=== PATIENT | female | born 1945 | race Caucasian/White ===

== ENCOUNTER 2016-06-02 09:42 | Outpatient (CLI) | payer MEDICARE ==
[2016-06-02 10:25] LABS: #Basophils 0.2 thou/uL (0.0-0.2); #Eosinphils 0.5 thou/uL (0.0-0.7); #Lymphocytes 2.5 thou/uL (1.20-3.40); #Monocytes 0.6 thou/uL (0.11-0.59); #Neutrophils 4.5 thou/uL (1.40-6.50); %Basophils 1.9 % (0.0-1.0); %Monocytes 7.4 % (0.0-10.0); %Neutrophils 54.8 % (42.0-75.0); Hemoglobin 16.1 g/dL (12.0-16.0); Mean Corpuscular HGB CONC 33.7 g/dL (32.0-36.0); Mean Corpuscular Hemoglobin 32.9 pg (27.0-31.0); Mean Corpuscular Volume 97.6 fl (81.0-99.0); Mean Platelet Volume 9.3 fL (7.4-10.4); Platelet Count 240 thou/uL (130-400); RBC Distribution Width 12.1 % (11.5-14.5); Red Blood Cell (RBC) Count 4.91 mill/uL (4.20-5.40); White Blood Cell (WBC) Count 8.2 thou/uL (4.8-10.8)
[2016-06-02 10:32] LABS: Hemoglobin A1c 5.7 % (4.0-6.0)
[2016-06-02 11:04] LABS: ALT (SGPT) 13 U/L (0-55); AST (SGOT) 13 U/L (5-34); Alkaline Phosphatase 121 U/L (40-150); Anion Gap 16 mmol/L (10-20); BUN (Urea Nitrogen) 11 mg/dL (9.8-20.1); Bilirubin, Direct 0.2 mg/dL (0.1-0.3); Bilirubin, Total 0.4 mg/dL (0.2-1.2); Calc. Creatinine Clearance 0 mL/min (70-130); Calcium 9.3 mg/dL (7.8-10.44); Carbon Dioxide 24 mmol/L (23-31); Cardiac Risk 4.8 (Less than 4.5); Chloride 105 mmol/L (98-107); Cholesterol 207 mg/dL (< 200 Desired); Estimated GFR-MDRD 82; Glucose 109 mg/dL (80-115); HDL Cholesterol 43 mg/dL (>60 Neg Risk); LDL Cholesterol, Calculated 130 mg/dL; Potassium 4.1 mmol/L (3.5-5.1); Protein, Total 7.1 g/dL (5.8-8.1); Sodium 141 mmol/L (136-145); Triglycerides 168 mg/dL (Less than 150)
[2016-06-02 17:56] LABS: Creatinine, Urine 55.59 mg/dL (47-110); Microalbumin Urine 4.4 mg/dL (0.5-50.0); Microalbumin/Creat Ratio 79.2 mg/g (Less than 30)
== END 2016-06-02 09:43 | disposition home or self-care (01) ==
LOC: MADLABBHPM 09:42
PROVIDERS: ATTEND Family Medicine
DX: E78.5 Hyperlipidemia, unspecified (principal); E66.9 Obesity, unspecified; E11.9 Type 2 diabetes mellitus without complications; I10 Essential (primary) hypertension
CPT/HCPCS: 36415; 80048; 80061; 80076; 82043; 83036; 84443; 85025

== ENCOUNTER 2017-03-28 11:35 | Emergency (ER) | payer MEDICARE ==
[2017-03-28 13:06] LABS: Bilirubin Negative (Negative); Blood, Urine Small (Negative); Glucose, Urine (Dipstick) Negative (Negative); Leukocyte Negative (Negative); Nitrite Negative (Negative); Protein, Urine (Dipstick) 30 mg/dL (Neg-Trace); Specific Gravity, Urine 1.025 (1.005-1.030); Urobilinogen 0.2 mg/dL (0.2-1.0)
[2017-03-28 13:07] LABS: Clarity Hazy (Clear)
[2017-03-28 13:08] LABS: Bacteria/HPF 1+ HPF (None Seen); Crystals/HPF 2+ CA OXALATE HPF (Negative); WBC/HPF 0-3 HPF (0-3)
--- NOTE | 2017-03-28 14:47 | RAD ---
AP PELVIS: HISTORY: Pelvic pain. Hip pain. FINDINGS: There are degenerative changes in the lower lumbar spine and in both hip joints. No definite fractur e or dislocation is seen. POS: [facility]
--- NOTE | 2017-03-28 14:50 | RAD ---
RADIOGRAPH LUMBAR SPINE 2 VIEWS: DATE: 03/28/2017 HISTORY: A 72-year-old female with chronic low back pain. COMPARISON: 08/24/2014 FINDINGS: There are five lumbar type vertebrae. Vertebral body heights are maintained. There is no scoliosis. There are endplate marginal osteophytes at multiple levels, especially in the lower thoracic spine and upper lumbar spine. There is moderate disk space narrowing at L5-S1. No severe disk space narro wing at any level. Vertebral body heights are maintained. There are high-grade degenerative facet c hanges at the lower levels. There is no major interval change overall. IMPRESSION: 1. Lumbar spondylosis with degenerative disk disease and facet osteoarthrosis at the lower levels. 2. No major interval change since 08/24/2014. MARVIN [] POS: [facility]PH[facility]
== END 2017-03-28 14:44 | disposition home or self-care (01) ==
LOC: MADERS 11:35
DX: M54.5 Low back pain (principal); R82.71 Bacteriuria; K64.9 Unspecified hemorrhoids; M41.9 Scoliosis, unspecified; I10 Essential (primary) hypertension; K21.9 Gastro-esophageal reflux disease without esophagitis; E78.00 Pure hypercholesterolemia, unspecified; F17.210 Nicotine dependence, cigarettes, uncomplicated; Z79.899 Other long term (current) drug therapy
CPT/HCPCS: 72100; 72170; 81003; 81015

== ENCOUNTER 2017-04-21 16:56 | Outpatient (CLI) | payer MEDICARE ==
--- NOTE | 2017-04-21 19:10 | RAD ---
TWO VIEWS CHEST 04/21/17 PROVIDED CLINICAL HISTORY: Cough. FINDINGS: Comparison is made with the study dated 09/06/11. The cardiac and mediastinal silhouette is unchanged in appearance. Nodular density at the left lung b ase is stable as compared with prior and probably reflects a granuloma. No focal consolidation, pleur al fluid or pneumothorax apparent. IMPRESSION: No evidence for an acute cardiopulmonary process. POS: [facility]
== END 2017-04-21 16:57 | disposition home or self-care (01) ==
LOC: MADRAD 16:56
PROVIDERS: ATTEND Family Medicine
DX: J45.909 Unspecified asthma, uncomplicated (principal)
CPT/HCPCS: 71046

== ENCOUNTER 2019-03-29 14:03 | Emergency (ER) | payer MEDICARE ==
[2019-03-29 14:31] LABS: Bilirubin Negative (Negative); Blood, Urine Small (Negative); Glucose, Urine (Dipstick) Negative (Negative); Leukocyte Trace (Negative); Nitrite Negative (Negative); Protein, Urine (Dipstick) 30 mg/dL (Neg-Trace); Urobilinogen 0.2 mg/dL (Less than 2)
[2019-03-29 14:37] LABS: Bacteria/HPF 1+ HPF (None Seen); Clarity Hazy (Clear)
[2019-03-29] MEDS ORDERED: Ibuprofen 800 MG TAB ONE (14:50)
== END 2019-03-29 15:09 | disposition home or self-care (01) ==
LOC: MADERS 14:03
DX: N39.0 Urinary tract infection, site not specified (principal); I10 Essential (primary) hypertension; K21.9 Gastro-esophageal reflux disease without esophagitis; E78.00 Pure hypercholesterolemia, unspecified; F17.210 Nicotine dependence, cigarettes, uncomplicated; Z79.899 Other long term (current) drug therapy
CPT/HCPCS: 81001; 87086; 99283

== ENCOUNTER 2019-06-26 18:29 | Emergency (ER) | payer MEDICARE, OTHER ==
--- NOTE | 2019-06-26 19:35 | RAD ---
XR Chest 1 View Portable History: Cough Comparison: Radiograph March 2017 Findings: Similar nodular density left lung base. Heart size upper limits of normal. Mild pulmonary v enous congestion. No pneumothorax. No effusion. No acute osseous abnormality. Impression: Cardiomegaly and mild pulmonary venous congestion. No evidence for pneumonia.
[2019-06-26 19:54] LABS: #Basophils 0.1 thou/uL (0.0-0.2); #Eosinphils 0.3 thou/uL (0.0-0.7); #Lymphocytes 2.3 thou/uL (1.20-3.40); #Monocytes 0.8 thou/uL (0.11-0.59); #Neutrophils 6.5 thou/uL (1.40-6.50); %Basophils 1.4 % (0.0-1.0); %Eosinophils 2.6 % (0.0-10.0); %Lymphocytes 22.8 % (21.0-51.0); %Monocytes 8.2 % (0.0-10.0); Hemoglobin 15.6 g/dL (12.0-16.0); Mean Corpuscular HGB CONC 32.5 g/dL (32.0-36.0); Mean Corpuscular Hemoglobin 32.3 pg (27.0-31.0); Mean Corpuscular Volume 99.3 fL (78.0-98.0); Mean Platelet Volume 10.4 fL (7.4-10.4); Platelet Count 228 thou/uL (130-400); RBC Distribution Width 12.3 % (11.5-14.5); Red Blood Cell (RBC) Count 4.84 mill/uL (4.20-5.40)
[2019-06-26 20:09] LABS: ALT (SGPT) 10 U/L (8-55); AST (SGOT) 16 U/L (5-34); Albumin 4.1 g/dL (3.4-4.8); Alkaline Phosphatase 143 U/L (40-110); Anion Gap 17 mmol/L (10-20); BUN (Urea Nitrogen) 8 mg/dL (9.8-20.1); Bilirubin, Total 0.2 mg/dL (0.2-1.2); Calc. Creatinine Clearance 0 mL/min (70-130); Calcium 9.4 mg/dL (7.8-10.44); Carbon Dioxide 21 mmol/L (23-31); Chloride 108 mmol/L (98-107); Estimated GFR-MDRD 76; Globulin 3.2 g/dL (2.4-3.5); Glucose 134 mg/dL (83-110); Potassium 3.8 mmol/L (3.5-5.1); Protein, Total 7.3 g/dL (6.0-8.3); Sodium 142 mmol/L (136-145)
== END 2019-06-26 21:38 | disposition home or self-care (01) ==
LOC: MADERS 18:29
DX: R05 Cough (principal); F17.210 Nicotine dependence, cigarettes, uncomplicated; I10 Essential (primary) hypertension; Z20.828 Contact with and (suspected) exposure to other viral communicable diseases; K21.9 Gastro-esophageal reflux disease without esophagitis; E78.00 Pure hypercholesterolemia, unspecified; F32.9 Major depressive disorder, single episode, unspecified; Z79.899 Other long term (current) drug therapy
CPT/HCPCS: 71045; 80053; 83605; 85025; 87804 ×2; 99283; 99406; U0001

== ENCOUNTER 2019-08-20 19:33 | Emergency (ER) | payer MEDICARE ==
[2019-08-20 20:00] LABS: Bilirubin Negative (Negative); Blood, Urine Moderate (Negative); Glucose, Urine (Dipstick) Negative (Negative); Leukocyte Moderate (Negative); Nitrite Negative (Negative); Protein, Urine (Dipstick) 100 mg/dL (Neg-Trace); Urobilinogen 0.2 mg/dL (Less than 2)
[2019-08-20 20:01] LABS: Clarity Cloudy (Clear)
[2019-08-20 20:14] LABS: Bacteria/HPF 2+ HPF (None Seen); Squamous Epithelial 0-3 HPF (0-3); WBC/HPF 21-50 HPF (0-3)
== END 2019-08-20 20:30 | disposition home or self-care (01) ==
LOC: MADERS 19:33
DX: N39.0 Urinary tract infection, site not specified (principal); E78.00 Pure hypercholesterolemia, unspecified; I10 Essential (primary) hypertension; K21.9 Gastro-esophageal reflux disease without esophagitis; F32.9 Major depressive disorder, single episode, unspecified; F17.210 Nicotine dependence, cigarettes, uncomplicated; Z79.899 Other long term (current) drug therapy
CPT/HCPCS: 81003; 81015; 99283

== ENCOUNTER 2019-08-29 17:24 | Outpatient (CLI) | payer MEDICARE ==
[2019-08-29 17:54] LABS: Bilirubin Negative (Negative); Blood, Urine Moderate (Negative); Glucose, Urine (Dipstick) Negative (Negative); Leukocyte Moderate (Negative); Nitrite Negative (Negative); Protein, Urine (Dipstick) 30 mg/dL (Neg-Trace); Urobilinogen 0.2 mg/dL (Less than 2)
[2019-08-29 18:19] LABS: Clarity Slightly Cloudy (Clear)
[2019-08-29 18:20] LABS: Bacteria/HPF 2+ HPF (None Seen); Squamous Epithelial 0-3 HPF (0-3); WBC/HPF Greater Than 50 HPF (0-3)
== END 2019-08-29 17:25 | disposition home or self-care (01) ==
LOC: MADLABBHPM 17:24
PROVIDERS: ATTEND Family Medicine
DX: R30.0 Dysuria (principal)
CPT/HCPCS: 81001; 87077; 87086; 87186

== ENCOUNTER 2020-03-16 13:30 | Emergency (ER) | payer MEDICARE ==
[2020-03-16 14:17] LABS: Bilirubin Negative (Negative); Blood, Urine Large (Negative); Clarity Cloudy (Clear); Glucose, Urine (Dipstick) Negative (Negative); Ketone, Urine Negative (Negative); Leukocyte Trace (Negative); Nitrite Negative (Negative); Protein, Urine (Dipstick) 100 mg/dL (Neg-Trace); Specific Gravity, Urine 1.015 (1.005-1.030); Urobilinogen 0.2 mg/dL (Less than 2)
[2020-03-16 14:21] LABS: RBC/HPF Greater than 50 HPF (0-3); Squamous Epithelial 0-3 HPF (0-3); WBC/HPF 0-3 HPF (0-3)
[2020-03-16 14:22] LABS: Bacteria/HPF Rare-Few HPF (None Seen)
[2020-03-17 02:10] LABS: SARS-CoV-2 MS2 Positive; SARS-CoV-2 N Gene Negative; SARS-CoV-2 S Gene Negative; SARS-CoV-2 by NAA Not Detected (NotDetected); SARS-CoV-2 orf1ab Negative
== END 2020-03-16 15:11 | disposition home or self-care (01) ==
LOC: MADERS 13:30
DX: N30.91 Cystitis, unspecified with hematuria (principal); F17.210 Nicotine dependence, cigarettes, uncomplicated; I10 Essential (primary) hypertension; K21.9 Gastro-esophageal reflux disease without esophagitis; E78.00 Pure hypercholesterolemia, unspecified; Z79.899 Other long term (current) drug therapy
CPT/HCPCS: 81003; 81015; 87086; 87635; 99283; U0003

== ENCOUNTER 2020-07-17 12:32 | Outpatient (CLI) | payer MEDICARE ==
[2020-07-17 13:40] LABS: #Basophils 0.1 thou/uL (0.0-0.2); #Eosinphils 0.4 thou/uL (0.0-0.7); #Monocytes 0.8 thou/uL (0.11-0.59); #Neutrophils 6.3 thou/uL (1.40-6.50); %Basophils 1.3 % (0.0-1.0); %Eosinophils 3.8 % (0.0-10.0); %Lymphocytes 28.1 % (21.0-51.0); %Monocytes 7.6 % (0.0-10.0); %Neutrophils 59.1 % (42.0-75.0); Mean Corpuscular HGB CONC 33.4 g/dL (32.0-36.0); Mean Corpuscular Hemoglobin 33.8 pg (27.0-31.0); Mean Platelet Volume 10.2 fL (7.4-10.4); Platelet Count 229 thou/uL (130-400); RBC Distribution Width 11.8 % (11.5-14.5); Red Blood Cell (RBC) Count 4.74 mill/uL (4.20-5.40); White Blood Cell (WBC) Count 10.7 thou/uL (4.8-10.8)
[2020-07-17 13:41] LABS: Anion Gap 17 mmol/L (10-20); BUN (Urea Nitrogen) 8 mg/dL (9.8-20.1); Calc. Creatinine Clearance 0 mL/min (70-130); Calcium 9.3 mg/dL (7.8-10.44); Carbon Dioxide 25 mmol/L (23-31); Chloride 107 mmol/L (98-107); Glucose 100 mg/dL (83-110); Potassium 4.1 mmol/L (3.5-5.1); Sodium 145 mmol/L (136-145)
== END 2020-07-17 12:33 | disposition home or self-care (01) ==
LOC: MADEKG 12:32
PROVIDERS: ATTEND Family Medicine
DX: Z01.818 Encounter for other preprocedural examination (principal)
CPT/HCPCS: 36415; 80048; 85025; 93005; 93010

== ENCOUNTER 2020-09-10 18:00 | Outpatient (CLI) | payer MEDICARE | END 2020-09-10 18:01 | disposition home or self-care (01) | LOC: MADLAB 18:00 | PROVIDERS: ATTEND Family Medicine | DX: N39.0 Urinary tract infection, site not specified (principal) | CPT/HCPCS: 87086 ==

== ENCOUNTER 2020-09-18 17:49 | Emergency (ER) | payer MEDICARE ==
[2020-09-18 18:31] LABS: Bilirubin Negative (Negative); Blood, Urine Trace (Negative); Clarity Clear (Clear); Glucose, Urine (Dipstick) Negative (Negative); Ketone, Urine Negative (Negative); Leukocyte Trace (Negative); Nitrite Positive (Negative); Protein, Urine (Dipstick) Negative (Neg-Trace); Urobilinogen 0.2 mg/dL (Less than 2); pH, Urine 6.5 (5.0-9.0)
[2020-09-18 18:32] LABS: Bacteria/HPF Rare-Few HPF (None Seen); RBC/HPF 0-3 HPF (0-3); Squamous Epithelial 0-3 HPF (0-3)
[2020-09-18] MEDS ORDERED: Cephalexin 500 MG CAP ONE (19:08)
== END 2020-09-18 19:17 | disposition home or self-care (01) ==
LOC: MADERS 17:49
DX: N39.0 Urinary tract infection, site not specified (principal); F41.9 Anxiety disorder, unspecified; I10 Essential (primary) hypertension; K21.9 Gastro-esophageal reflux disease without esophagitis; E78.00 Pure hypercholesterolemia, unspecified; F17.210 Nicotine dependence, cigarettes, uncomplicated; M54.5 Low back pain; R00.0 Tachycardia, unspecified; Z79.899 Other long term (current) drug therapy
CPT/HCPCS: 81003; 81015; 87086; 99283

== ENCOUNTER 2020-11-29 12:33 | Emergency (ER) | payer MEDICARE ==
[2020-11-29 13:33] LABS: Clarity Clear (Clear)
[2020-11-29 13:34] LABS: Leukocyte Negative (Negative); Nitrite Unable to Interpret (Negative)
[2020-11-29 13:35] LABS: Glucose, Urine (Dipstick) Negative (Negative); Ketone, Urine Negative (Negative); Protein, Urine (Dipstick) Unable to Interpret mg/dL (Neg-Trace)
[2020-11-29 13:36] LABS: Blood, Urine Small (Negative)
[2020-11-29 13:37] LABS: Bilirubin Unable to Interpret (Negative)
[2020-11-29 13:39] LABS: WBC/HPF 0-3 HPF (0-3)
[2020-11-29 13:40] LABS: Bacteria/HPF Rare-Few HPF (None Seen); RBC/HPF 0-3 HPF (0-3)
== END 2020-11-29 14:40 | disposition home or self-care (01) ==
LOC: MADERS 12:33
DX: N20.0 Calculus of kidney (principal); I10 Essential (primary) hypertension; K21.9 Gastro-esophageal reflux disease without esophagitis; E78.00 Pure hypercholesterolemia, unspecified; F17.210 Nicotine dependence, cigarettes, uncomplicated; Z79.899 Other long term (current) drug therapy
CPT/HCPCS: 74176; 81003; 81015; 87086

== ENCOUNTER 2021-02-02 12:05 | Emergency (ER) | payer MEDICARE ==
[2021-02-02 12:41] LABS: Bilirubin Negative (Negative); Blood, Urine Moderate (Negative); Glucose, Urine (Dipstick) Negative (Negative); Ketone, Urine Trace mg/dL (Negative); Leukocyte Small (Negative); Nitrite Positive (Negative); Protein, Urine (Dipstick) 100 mg/dL (Neg-Trace); Urobilinogen 0.2 mg/dL (Less than 2); pH, Urine 5.5 (5.0-9.0)
[2021-02-02 12:42] LABS: Clarity Hazy (Clear)
[2021-02-02 12:44] LABS: Bacteria/HPF Rare-Few HPF (None Seen); WBC/HPF Greater Than 50 HPF (0-3)
== END 2021-02-02 13:02 | disposition home or self-care (01) ==
LOC: EEVIPCON 12:05 → MADERS 12:05
DX: N39.0 Urinary tract infection, site not specified (principal); I10 Essential (primary) hypertension; K21.9 Gastro-esophageal reflux disease without esophagitis; E78.00 Pure hypercholesterolemia, unspecified; F17.210 Nicotine dependence, cigarettes, uncomplicated; Z79.899 Other long term (current) drug therapy
CPT/HCPCS: 81003; 81015; 87077; 87086; 87186; 99283

== ENCOUNTER 2021-12-13 09:36 | Emergency (ER) | payer MEDICARE ==
[2021-12-13 10:19] LABS: Bilirubin Negative (Negative); Blood, Urine Moderate (Negative); Clarity Clear (Clear); Glucose, Urine (Dipstick) 100 mg/dL (Negative); Ketone, Urine Negative (Negative); Leukocyte Small (Negative); Nitrite Positive (Negative); Protein, Urine (Dipstick) 30 mg/dL (Neg-Trace); pH, Urine 6.5 (5.0-9.0)
[2021-12-13 10:25] LABS: Bacteria/HPF 2+ HPF (None Seen); RBC/HPF 21-50 HPF (0-3); Squamous Epithelial 0-3 HPF (0-3); WBC/HPF Greater than 50 HPF (0-3)
[2021-12-13] MEDS ORDERED: cefTRIAXone\\ROCEPHIN 1 GM VIAL ONE (11:13)
[2021-12-13] MEDS ORDERED: Lidocaine 1% (PF) 30 ML VIAL ONE (11:13)
== END 2021-12-13 11:43 | disposition home or self-care (01) ==
LOC: MADERS 09:36
DX: N39.0 Urinary tract infection, site not specified (principal); B37.9 Candidiasis, unspecified; I10 Essential (primary) hypertension; K21.9 Gastro-esophageal reflux disease without esophagitis; E78.00 Pure hypercholesterolemia, unspecified; F17.210 Nicotine dependence, cigarettes, uncomplicated; Z79.899 Other long term (current) drug therapy
CPT/HCPCS: 36416; 81003; 81015; 87077; 87086; 87186; 96372; 99283; J0696; J2001

== ENCOUNTER 2022-01-13 12:42 | Outpatient (CLI) | payer MEDICARE ==
[2022-01-13 12:57] LABS: ALT (SGPT) 11 U/L (8-55); AST (SGOT) 16 U/L (5-34); Albumin 3.9 g/dL (3.4-4.8); Alkaline Phosphatase 115 U/L (40-110); Anion Gap 12 mmol/L (10-20); BUN (Urea Nitrogen) 11 mg/dL (9.8-20.1); Bilirubin, Total 0.5 mg/dL (0.2-1.2); Calc. Creatinine Clearance 0 mL/min (70-130); Calcium 9.2 mg/dL (7.8-10.44); Carbon Dioxide 26 mmol/L (23-31); Cardiac Risk 2.9 (Less than 4.5); Chloride 108 mmol/L (98-107); Cholesterol 138 mg/dl (< 200 Desired); Estimated GFR 89; Globulin 3.1 g/dL (2.4-3.5); Glucose 110 mg/dL (83-110); HDL Cholesterol 47 mg/dL (>60 Neg Risk); LDL Cholesterol, Calculated 70 mg/dL; Sodium 142 mmol/L (136-145); Triglycerides 106 mg/dL (Less than 150)
[2022-01-13 13:01] LABS: #Basophils 0.1 thou/uL (0.0-0.2); #Eosinphils 0.4 thou/uL (0.0-0.7); #Lymphocytes 2.6 thou/uL (1.20-3.40); #Monocytes 0.7 thou/uL (0.11-0.59); #Neutrophils 4.9 thou/uL (1.40-6.50); %Basophils 1.2 % (0.0-1.0); %Eosinophils 4.7 % (0.0-10.0); %Lymphocytes 29.9 % (21.0-51.0); %Monocytes 7.6 % (0.0-10.0); %Neutrophils 56.6 % (42.0-75.0); Hemoglobin 15.4 g/dL (12.0-16.0); Mean Corpuscular HGB CONC 32.8 g/dL (32.0-36.0); Mean Corpuscular Hemoglobin 32.6 pg (27.0-31.0); Mean Corpuscular Volume 99.5 fL (78.0-98.0); Mean Platelet Volume 9.8 fL (7.4-10.4); Platelet Count 237 thou/uL (130-400); RBC Distribution Width 12.1 % (11.5-14.5); Red Blood Cell (RBC) Count 4.71 mill/uL (4.20-5.40); White Blood Cell (WBC) Count 8.6 thou/uL (4.8-10.8)
[2022-01-13 16:32] LABS: Hemoglobin A1c 5.8 % (4.0-6.0)
== END 2022-01-13 12:43 | disposition home or self-care (01) ==
LOC: MADLAB 12:42
PROVIDERS: ATTEND Family Medicine
DX: E11.9 Type 2 diabetes mellitus without complications (principal); E78.5 Hyperlipidemia, unspecified
CPT/HCPCS: 36415; 80053; 80061; 83036; 84443; 85025

== ENCOUNTER 2023-01-27 17:18 | Emergency (ER) | payer MEDICARE ==
[2023-01-27 17:41] LABS: Bilirubin Negative (Negative); Blood, Urine Trace (Negative); Glucose, Urine (Dipstick) Negative (Negative); Ketone, Urine Trace mg/dL (Negative); Leukocyte Trace (Negative); Nitrite Negative (Negative); Protein, Urine (Dipstick) 100 mg/dL (Neg-Trace); Specific Gravity, Urine 1.025 (1.005-1.030)
[2023-01-27 17:44] LABS: CAUTI Indications for Culture Dysuria,urgency,freq; Clarity Hazy (Clear)
[2023-01-27 17:48] LABS: RBC/HPF 0-3 HPF (0-3)
[2023-01-27 17:49] LABS: Bacteria/HPF 2+ HPF (None Seen); Calcium Oxalate Crystals 1+ HPF (None Seen)
[2023-01-27] MEDS ORDERED: Ketorolac Tromethamine 60 MG/2 ML VIAL ONE (17:54)
[2023-01-27] MEDS ORDERED: predniSONE 20 MG TAB ONE (17:54)
[2023-01-27] MEDS ORDERED: Sterile Water 10 ML ONE (18:17)
[2023-01-27] MEDS ORDERED: Fluconazole 100 MG TAB ONE (18:17)
[2023-01-27] MEDS ORDERED: cefTRIAXone (ROCEPHIN) 1 GM VIAL ONE (18:17)
== END 2023-01-27 19:00 | disposition home or self-care (01) ==
LOC: MADERS 17:18
DX: S39.012A Strain of muscle, fascia and tendon of lower back, initial encounter (principal); B37.31 Acute candidiasis of vulva and vagina; E78.00 Pure hypercholesterolemia, unspecified; K21.9 Gastro-esophageal reflux disease without esophagitis; I10 Essential (primary) hypertension; F17.210 Nicotine dependence, cigarettes, uncomplicated; X58.XXXA Exposure to other specified factors, initial encounter
CPT/HCPCS: 81001; 96372; 99283; J0696; J1885; J7512

== ENCOUNTER 2023-12-21 13:26 | Emergency (ER) | payer MEDICARE | END 2023-12-21 14:08 | disposition home or self-care (01) | LOC: MADERS 13:26 | DX: S29.011A Strain of muscle and tendon of front wall of thorax, initial encounter (principal); F17.210 Nicotine dependence, cigarettes, uncomplicated; I10 Essential (primary) hypertension; X50.0XXA Overexertion from strenuous movement or load, initial encounter | CPT/HCPCS: 99283 ==

== ENCOUNTER 2025-03-07 10:14 | Outpatient (CLI) | payer MEDICARE ==
[2025-03-07 10:29] LABS: #Basophils 0.1 thou/uL (0.0-0.2); #Eosinophils 0.4 thou/uL (0.0-0.7); #Lymphocytes 1.7 thou/uL (1.20-3.40); #Monocytes 0.7 thou/uL (0.11-0.59); #Neutrophils 4.7 thou/uL (1.40-6.50); %Basophils 1.3 % (0.0-1.0); %Eosinophils 5.8 % (0.0-10.0); %Lymphocytes 22.8 % (21.0-51.0); %Monocytes 8.6 % (0.0-10.0); %Neutrophils 61.4 % (42.0-75.0); Hematocrit 47.5 % (36.0-47.0); Hemoglobin 15.2 g/dL (12.0-16.0); Mean Corpuscular Hemoglobin 31.8 pg (27.0-31.0); Mean Corpuscular Volume 99.8 fl (78.0-98.0); Platelet Count 222 10x3/uL (130-400); Red Blood Cell (RBC) Count 4.76 mill/uL (4.20-5.40); White Blood Cell (WBC) Count 7.6 10x3/uL (4.8-10.8)
[2025-03-07 10:45] LABS: ALT (SGPT) 10 U/L (Less than 34); AST (SGOT) 18 U/L (11-34); Albumin 4.0 g/dL (3.1-4.5); Alkaline Phosphatase 118 U/L (40-110); Anion Gap 15 mmol/L (10-20); BUN (Urea Nitrogen) 14 mg/dL (9.8-20.1); Bilirubin, Total 0.5 mg/dL (0.3-1.2); Calc. Creatinine Clearance 0 mL/min (70-130); Calcium 9.3 mg/dL (7.8-10.44); Carbon Dioxide 24 mmol/L (23-31); Cardiac Risk 2.8 (Less than 4.5); Chloride 109 mmol/L (98-107); Cholesterol 144 mg/dl (< 200 Desired); Globulin 3.0 g/dL (2.4-3.5); Glucose 106 mg/dL (83-110); HDL Cholesterol 52 mg/dL (>60 Neg Risk); LDL Cholesterol, Calculated 72 mg/dL; Potassium 4.0 mmol/L (3.5-5.1); Sodium 144 mmol/L (136-145); Triglycerides 98 mg/dL (Less than 150)
== END 2025-03-07 10:15 | disposition home or self-care (01) ==
LOC: MADLAB 10:14
PROVIDERS: ATTEND Family Medicine
DX: I10 Essential (primary) hypertension (principal); E78.5 Hyperlipidemia, unspecified; D75.89 Other specified diseases of blood and blood-forming organs; R73.09 Other abnormal glucose
CPT/HCPCS: 36415; 80053; 80061; 82607; 82746; 83036; 85025